=== PATIENT | male | born 1950 | race Caucasian/White ===

== ENCOUNTER 2017-10-22 22:38 | Emergency (ER) | payer OTHER ==
[~2017-10-22] VITALS: Ht 177.8 cm; Wt 89.8 kg
--- NOTE | 2017-10-22 22:38 | NUR ---
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 PT AAOX4, PALE, COOL, DIAPHORETIC. PT SON IN LAW AT BEDSIDE. PLACE PT ON CARDIAC MONITORING, CONTINUOUS POX. SL 18G TO LAC. ER MD AT BEDSIDE TO EVAL PT WITH ORDERS RECEIVED. WILL CARRY OUT ORDERS.
[2017-10-22] MEDS ORDERED: ASPIRIN 81 MG TAB.CHEW ONE (22:52)
[2017-10-22] MEDS ORDERED: HEPARIN SODIUM, PORCINE 5000 UNITS/1 ML VIAL ONE (22:52)
[2017-10-22] MEDS ORDERED: HEPARIN INFUSION/D5W 500 ML IV ONE (22:53)
[2017-10-22] MEDS ORDERED: ONDANSETRON HCL/PF 4 MG/2 ML VIAL ONE (22:54)
--- NOTE | 2017-10-22 22:54 | NUR ---
FAXED FACE SHEET & EKG FAXED TO [facility].
[2017-10-22] MEDS ORDERED: MORPHINE SULFATE INJ 4 MG/ML DISP.SYRIN ONE ×2 (22:55→23:12)
--- NOTE | 2017-10-22 22:55 | NUR ---
[facility] WAS CALLED AND NOTIFIED AT 2250.
--- NOTE | 2017-10-22 22:58 | NUR ---
AUGIE HAMM RN DRAW AND ADMISITER HEPARIN 4000 UNITS.
[2017-10-22] MEDS ORDERED: HEPARIN SODIUM, PORCINE 5000 UNITS/1 ML VIAL IV ONE (23:00)
[2017-10-22] MEDS ORDERED: IV NS 0.9% 1,000 ML BAG IV ONE (23:00)
[2017-10-22] MEDS ORDERED: MORPHINE SULFATE INJ 2 MG/ML DISP.SYRIN IV ONE ×3 (23:00→23:30)
[2017-10-22] MEDS ORDERED: ONDANSETRON HCL/PF 4 MG/2 ML VIAL IVP ONE (23:00)
[2017-10-22] MEDS ORDERED: HEPARIN INFUSION/D5W 500 ML IV PRN (23:00)
[2017-10-22] MEDS ORDERED: ASPIRIN 81 MG TAB.CHEW PO ONE (23:00)
[2017-10-22 23:02] LABS: BASOPHILS # (AUTO) 0.1 /CMM (0.0-0.2); BASOPHILS % (AUTO) 0.7 % (0.0-2.0); EOSINOPHILS # (AUTO) 0.3 /CMM (0.0-0.7); EOSINOPHILS % (AUTO) 2.6 % (0.0-6.0); HEMATOCRIT 39 % (39-51); HEMOGLOBIN 13.3 g/dL (13.5-17.5); LYMPHOCYTES # (AUTO) 3.9 /CMM (0.8-4.8); MEAN CORPUSCULAR HEMOGLOBIN 30 PG (26.0-33.0); MEAN CORPUSCULAR HGB CONC 34 g/dl (31.0-36.0); MEAN CORPUSCULAR VOLUME 88 fL (80-96); MONOCYTES # (AUTO) 0.8 /CMM (0.1-1.30); MONOCYTES % (AUTO) 6.9 % (2.0-12.0); NEUTROPHILS # (AUTO) 7.1 /CMM (1.8-8.9); NEUTROPHILS % (AUTO) 57.8 % (43.0-81.0); PLATELET COUNT (AUTO) 222 /CMM (150-450); RDW COEFFICIENT OF VARIATION 13.4 (11.5-15.0); RED BLOOD CELL COUNT(AUTO) 4.42 MIL/uL (4.5-6.0); WHITE BLOOD COUNT (AUTO) 12.3 K/uL (4.3-11.0)
--- NOTE | 2017-10-22 23:03 | NUR ---
ER AT BEDSIDE TO RE-EVAL PT. PT SON IN LAW REMAINS AT BEDSIDE.
--- NOTE | 2017-10-22 23:07 | NUR ---
AUGIE SWEENEY RN INITIATE HEPARIN DRIP AT 1000units/HR
--- NOTE | 2017-10-22 23:10 | NUR ---
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 AWAITING CALL BACK.
[2017-10-22 23:16] LABS: INR 0.92 (0.87-1.13)
[2017-10-22 23:17] LABS: CALCIUM, SERUM 8.5 mg/dL (8.5-10.1); CARBON DIOXIDE 28 mmol/L (21-32); CHLORIDE 107 mmol/L (98-107); CREATININE 1.2 mg/dL (0.6-1.3); GLUCOSE 160 mg/dL (74-106); POTASSIUM 3.7 mmol/L (3.5-5.1); SODIUM SERUM 143 mmol/L (136-145); UREA NITROGEN, BLOOD 13 mg/dL (7-18)
[2017-10-22 23:19] LABS: TROPONIN I < 0.017 ng/mL (0.00-0.056)
--- NOTE | 2017-10-22 23:19 | NUR ---
RECEIVED CALL FROM JONY FRANCE AT [facility]. ETA: 15-20 MINS
[2017-10-23] VITALS: BP 148/97
--- NOTE | 2017-10-23 00:01 | NUR ---
TRANSPORT FOR PT BEDSIDE. REPORT GIVEN TO JONY VELAZQUEZ FOR [facility]. PT BEING TRANSFERRED TO [facility] AT [facility]
== END 2017-10-23 00:33 | disposition short-term general hospital (02) ==
LOC: ER 22:41
DX: I21.29 ST elevation (STEMI) myocardial infarction involving other sites (principal); D64.9 Anemia, unspecified; I10 Essential (primary) hypertension; Z86.73 Personal history of transient ischemic attack (TIA), and cerebral infarction without residual deficits
CPT/HCPCS: 36415; 71045; 80048; 84484; 85025; 85730; 93005; 96361; 96365; 96374; 96375; 96376; 99291; A4606; J1644 ×2; J2270 ×2; J2405; J7030; Z7610